=== PATIENT | male | born 1970 | race African-American/Black ===

== ENCOUNTER 2019-03-17 19:27 | Emergency (ER) | payer SELFPAY ==
[2019-03-17] MEDS ORDERED: HYDROCODONE/APAP 10/325 TAB ONE (19:44)
[2019-03-17] MEDS ORDERED: DIAZEPAM 5 MG TABLET ONE (19:45)
[2019-03-17] MEDS ORDERED: FENTANYL CITR 100 MCG/2 ML ONE (20:16)
--- NOTE | 2019-03-17 20:30 | ER ---
Nurse's Notes [facility] Name: David Hercules Age: 48 yrs Sex: Male : 1970 Arrival Date: 03/17/2019 Time: 19:29 Bed 20 Private MD: Diagnosis: Midshaft spiral right humerus fracture Presentation: 03/17 19:32 Presenting complaint: Patient states: He was playing soccer when he ran into another aj1 player. He felt his arm pop and now he has pain in his right upper arm. Transition of care: patient was not received from another setting of care. Onset of symptoms was March 17, 2019. Risk Assessment: Do you want to hurt yourself or someone else? Patient reports no desire to harm self or others. Initial Sepsis Screen: Does the patient meet any 2 criteria? HR > 90 bpm. No. Patient's initial sepsis screen is negative. Does the patient have a suspected source of infection? No. Patient's initial sepsis screen is negative. Care prior to arrival: None. 19:32 [facility] 19:32 Acuity: AILYN 4 aj1 Triage Assessment: 19:33 General: Appears in no apparent distress. uncomfortable, Behavior is calm, cooperative, aj1 appropriate for age. Pain: Complains of pain in right tricep Pain currently is 10 out of 10 on a pain scale. Neuro: Level of Consciousness is awake, alert, obeys commands, Oriented to person, place, time, situation. Cardiovascular: Patient's skin is warm and dry. Respiratory: Airway is patent Respiratory effort is even, unlabored, Respiratory pattern is regular, symmetrical. Musculoskeletal: Range of motion: limited in right elbow and right wrist. Injury Description: Patient states that he ran into another player while playing soccer. Historical: - Allergies: 19:33 No Known Allergies; aj1 - Home Meds: 19:33 None [Active]; aj1 - PMHx: 19:33 Asthma; aj1 - PSHx: 19:33 None; aj1 - Immunization history:: Flu vaccine is not up to date. - Social history:: Smoking status: Patient uses tobacco products, smokes one pack cigarettes per day. - Ebola Screening: : Patient denies travel to an Ebola-affected area in the 21 days before illness onset. Screenin:54 Abuse screen: Denies threats or abuse. Denies injuries from another. Nutritional rr5 screening: No deficits noted. Tuberculosis screening: No symptoms or risk factors identified. Fall Risk Fall in past 12 months (25 points). Total Nagy Fall Scale indicates Low Risk Score (25-44 pts). Fall prevention measures have been instituted. Side Rails Up X 2 Placed close to Nursing Station Frequent Obs/Assesments occuring Family Present and informed to notify staff if they need to leave bedside As available Patient and Family Educated on Fall Prevention Program and strategies. Assessment: 19:40 General: Appears in no apparent distress. uncomfortable, Behavior is calm, cooperative, rr5 appropriate for age. Pain: Complains of pain in right upper arm Pain does not radiate. Pain currently is 10 out of 10 on a pain scale. Quality of pain is described as aching, Pain began suddenly, Is intermittent. 19:40 Neuro: Level of Consciousness is awake, alert, obeys commands, Oriented to person, rr5 place, time, situation, Appropriate for age. Cardiovascular: Capillary refill < 3 seconds Patient's skin is warm and dry. Respiratory: Airway is patent Respiratory effort is even, unlabored, Respiratory pattern is regular, symmetrical. GI: No signs and/or symptoms were reported involving the gastrointestinal system. : No signs and/or symptoms were reported regarding the genitourinary system. EENT: No signs and/or symptoms were reported regarding the EENT system. Derm: Skin is intact, Skin temperature is warm. Musculoskeletal: Circulation, motion, and sensation intact. Capillary refill < 3 seconds, Range of motion: limited in right elbow Swelling present in right upper arm Reports pain in right upper arm. 20:11 Reassessment: Patient appears in no apparent distress at this time. complaint of right rr5 arm pain pain score 7/10. ED provider aware with ordered made and carried out. 21:04 Reassessment: Patient appears in no apparent distress at this time. Patient is alert, rr5 oriented x 3, equal unlabored respirations, skin warm/dry/pink. discharge instruction given and explained without complaints made. splint rechecked by ED provider. Patient states feeling better. Patient states symptoms have improved. Vital Signs: 19:33 BP 116 / 66; Pulse 104; Resp 20; Temp 98.4; Pulse Ox 100% on R/A; Weight 77.11 kg (R); aj1 Height 6 ft. 0 in. (182.88 cm) (R); Pain 10/10; 20:10 BP 118 / 70; Pulse 99; Resp 18; Pulse Ox 99% on R/A; Pain 7/10; rr5 21:00 BP 115 / 60; Pulse 95; Resp 17; Pulse Ox 99% on R/A; rr5 19:33 Body Mass Index 23.06 (77.11 kg, 182.88 cm) aj1 ED Course: 19:29 Patient arrived in ED. ds1 19:33 Triage completed. aj1 19:33 Arm band placed on Patient placed in an exam room. aj1 19:36 Maxi Ontiveros RN is Primary Nurse. rr5 19:36 Trisha Shi FNP-C is PHCP. snw 19:36 Thai Ribera MD is Attending Physician. snw 19:40 Ice pack to injury. rr5 19:40 Patient has correct armband on for positive identification. Bed in low position. Call rr5 light in reach. Side rails up X2. 19:50 Shoulder immobilizer applied on right shoulder. rr5 20:27 Gaudencio Han MD is Referral Physician. snw 20:36 Humerus Right XRAY In Process Unspecified. EDMS 21:00 Orthoglass splint: Coaptation splint applied on right arm. rr5 21:05 No provider procedures requiring assistance completed. Patient did not have IV access rr5 during this emergency room visit. Administered Medications: 19:50 Drug: [place] 10 mg-325 mg 1 tabs {Note: rass 0.} Route: PO; rr5 20:50 Follow up: Response: RASS: Alert and Calm (0) rr5 19:50 Drug: Valium 5 mg Route: PO; rr5 20:50 Follow up: Response: RASS: Alert and Calm (0) rr5 20:17 Drug: fentaNYL (PF) 50 mcg Route: IM; Site: left deltoid; rr5 20:18 Follow up: rass 0 on administration rr5 21:03 Follow up: Response: No adverse reaction; RASS: Alert and Calm (0) rr5 20:50 Drug: Tetanus-Diphtheria Toxoid Adult 0.5 ml {Health And Safety Representative: [employer]. Exp: rr5 10/29/2020. Lot #: [id number]. } Route: IM; Site: right gluteus; 21:03 Follow up: Response: Medication administered at discharge. rr5 Intake: Outcome: 20:28 Discharge ordered by . lizzie 21:05 Discharged to home ambulatory, with family. rr5 21:05 Condition: stable 21:05 Discharge instructions given to patient, Instructed on discharge instructions, follow up and referral plans. medication usage, Demonstrated understanding of instructions, follow-up care, medications, Prescriptions given X 2. 21:06 Patient left the ED. rr5 Signatures: Dispatcher [employer] EDJocelyne Harrison, RN RN aj1 Trisha Shi, RODEO CLOWN-C RODEO CLOWN-Csnw Estrella Kirk ds1 Maxi Ontiveros, RN RN rr5
--- NOTE | 2019-03-17 20:31 | EDPHYS ---
Physician Documentation [facility] Name: David Hercules Age: 48 yrs Sex: Male : 1970 Arrival Date: 03/17/2019 Time: 19:29 Bed 20 Private MD: ED Physician Thai Ribera HPI: 03/17 19:41 This 48 yrs old Black Male presents to ER via Ambulatory with complaints of Arm Injury. snw 19:41 The patient or guardian complains of decreased range of motion, pain, that is acute. snw The complaints affect the right bicep. Context: The problem was sustained at a sports field or court, resulted from ran into another player and felt a pop. Onset: The symptoms/episode began/occurred suddenly, just prior to arrival. Treatment prior to arrival includes: no previous treatment. Associated signs and symptoms: The patient has no apparent associated signs or symptoms. Severity of symptoms: At their worst the symptoms were moderate, severe. The patient has experienced a previous episode, 30 yrs ago. The patient has not recently seen a physician. Historical: - Allergies: 19:33 No Known Allergies; aj1 - Home Meds: 19:33 None [Active]; aj1 - PMHx: 19:33 Asthma; aj1 - PSHx: 19:33 None; aj1 - Immunization history:: Flu vaccine is not up to date. - Social history:: Smoking status: Patient uses tobacco products, smokes one pack cigarettes per day. - Ebola Screening: : Patient denies travel to an Ebola-affected area in the 21 days before illness onset. ROS: 19:39 Constitutional: Negative for fever, chills, and weight loss, Eyes: Negative for injury, snw pain, redness, and discharge, ENT: Negative for injury, pain, and discharge, Neck: Negative for injury, pain, and swelling, Cardiovascular: Negative for chest pain, palpitations, and edema, Respiratory: Negative for shortness of breath, cough, wheezing, and pleuritic chest pain, Abdomen/GI: Negative for abdominal pain, nausea, vomiting, diarrhea, and constipation, Back: Negative for injury and pain, : Negative for injury, bleeding, discharge, and swelling, Skin: Negative for injury, rash, and discoloration, Neuro: Negative for headache, weakness, numbness, tingling, and seizure. 19:39 MS/extremity: Positive for injury or acute deformity, decreased range of motion, pain, of the right humerus. Exam: 19:39 Constitutional: This is a well developed, well nourished patient who is awake, alert, snw and in no acute distress. Head/Face: Normocephalic, atraumatic. Eyes: Pupils equal round and reactive to light, extra-ocular motions intact. Lids and lashes normal. Conjunctiva and sclera are non-icteric and not injected. Cornea within normal limits. Periorbital areas with no swelling, redness, or edema. ENT: Nares patent. No nasal discharge, no septal abnormalities noted. Tympanic membranes are normal and external auditory canals are clear. Oropharynx with no redness, swelling, or masses, exudates, or evidence of obstruction, uvula midline. Mucous membranes moist. Neck: Trachea midline, no thyromegaly or masses palpated, and no cervical lymphadenopathy. Supple, full range of motion without nuchal rigidity, or vertebral point tenderness. No Meningismus. Chest/axilla: Normal chest wall appearance and motion. Nontender with no deformity. No lesions are appreciated. Cardiovascular: Regular rate and rhythm with a normal S1 and S2. No gallops, murmurs, or rubs. Normal PMI, no JVD. No pulse deficits. Respiratory: Lungs have equal breath sounds bilaterally, clear to auscultation and percussion. No rales, rhonchi or wheezes noted. No increased work of breathing, no retractions or nasal flaring. Abdomen/GI: Soft, non-tender, with normal bowel sounds. No distension or tympany. No guarding or rebound. No evidence of tenderness throughout. Back: No spinal tenderness. No costovertebral tenderness. Full range of motion. Skin: Warm, dry with normal turgor. Normal color with no rashes, no lesions, and no evidence of cellulitis. Neuro: Awake and alert, GCS 15, oriented to person, place, time, and situation. Cranial nerves II-XII grossly intact. Motor strength 5/5 in all extremities. Sensory grossly intact. Cerebellar exam normal. Normal gait. Psych: Awake, alert, with orientation to person, place and time. Behavior, mood, and affect are within normal limits. 19:39 Musculoskeletal/extremity: Extremities: grossly normal except: noted in the right bicep: decreased ROM, pain, swelling, ROM: limited active range of motion due to pain, limited passive range of motion due to pain, Circulation is intact in all extremities. Sensation intact. Joints: right shoulder held in adduction. Vital Signs: 19:33 BP 116 / 66; Pulse 104; Resp 20; Temp 98.4; Pulse Ox 100% on R/A; Weight 77.11 kg (R); aj1 Height 6 ft. 0 in. (182.88 cm) (R); Pain 10/10; 20:10 BP 118 / 70; Pulse 99; Resp 18; Pulse Ox 99% on R/A; Pain 7/10; rr5 21:00 BP 115 / 60; Pulse 95; Resp 17; Pulse Ox 99% on R/A; rr5 19:33 Body Mass Index 23.06 (77.11 kg, 182.88 cm) aj1 Procedures: 20:30 Splinting: Splint applied to right arm using Orthoglass splint, applied by nurse. snw MDM: 19:36 Patient medically screened. snw 20:16 Data reviewed: vital signs, nurses notes. Data interpreted: Pulse oximetry: on room air snw is 100 %. Interpretation: normal. Counseling: I had a detailed discussion with the patient and/or guardian regarding: the historical points, exam findings, and any diagnostic results supporting the discharge/admit diagnosis, radiology results, the need for outpatient follow up, to return to the emergency department if symptoms worsen or persist or if there are any questions or concerns that arise at home. Physician consultation: Gaudencio Han MD was called at 20:18, was contacted at 20:18, regarding consult, patient's condition, outpatient follow-up, in 2-3 days, orders for coaptation splint, pain medications, and outpatient follow up. 03/17 19:40 Order name: Humerus Right XRAY; Complete Time: 20:46 snw 03/17 19:40 Order name: Sling; Complete Time: 19:50 snw 03/17 19:40 Order name: Ice pack; Complete Time: 19:40 snw 03/17 20:25 Order name: Splint: Coaptation splint; Complete Time: 21:01 snw Administered Medications: 19:50 Drug: [place] 10 mg-325 mg 1 tabs {Note: rass 0.} Route: PO; rr5 20:50 Follow up: Response: RASS: Alert and Calm (0) rr5 19:50 Drug: Valium 5 mg Route: PO; rr5 20:50 Follow up: Response: RASS: Alert and Calm (0) rr5 20:17 Drug: fentaNYL (PF) 50 mcg Route: IM; Site: left deltoid; rr5 20:18 Follow up: rass 0 on administration rr5 21:03 Follow up: Response: No adverse reaction; RASS: Alert and Calm (0) rr5 20:50 Drug: Tetanus-Diphtheria Toxoid Adult 0.5 ml {Leather Production Worker: [employer]. Exp: rr5 10/29/2020. Lot #: [id number]. } Route: IM; Site: right gluteus; 21:03 Follow up: Response: Medication administered at discharge. rr5 Disposition: 03/18 01:09 Co-signature as Attending Physician, Thai Ribera MD. [facility] Disposition: 03/17/19 20:28 Discharged to Home. Impression: Midshaft spiral right humerus fracture. - Condition is Stable. - Discharge Instructions: Cast or Splint Care, Adult, RICE for Routine Care of Injuries, VIS, Tetanus, Diphtheria (Td) - CDC, How to Use a Sling. - Prescriptions for Mobic 7.5 mg Oral Tablet - take 1 tablet by ORAL route once daily take with food; 20 tablet. Tylenol- Codeine #3 300-30 mg Oral Tablet - take 2 tablets by ORAL route every 6 hours As needed; 20 tablet. - Medication Reconciliation Form, Thank You Letter, Antibiotic Education, Prescription Opioid Use form. - Follow up: Emergency Department; When: As needed; Reason: Worsening of condition. Follow up: Gaudencio Han MD; When: 2 - 3 days; Reason: Recheck today's complaints, Continuance of care. - Problem is new. - Symptoms are unchanged. Signatures: Dispatcher [employer] Jocelyne Gutierrez RN RN aj1 Thai Ribera MD MD pkl Trisha Shi, FOOD TESTER-C FOOD TESTER-Csnw Maxi Ontiveros RN RN rr5 Corrections: (The following items were deleted from the chart) 03/17 21:06 20:28 03/17/2019 20:28 Discharged to Home. Impression: Midshaft spiral right humerus rr5 fracture. Condition is Stable. Forms are Medication Reconciliation Form, Thank You Letter, Antibiotic Education, Prescription Opioid Use. Follow up: Emergency Department; When: As needed; Reason: Worsening of condition. Follow up: Gaudencio Han; When: 2 - 3 days; Reason: Recheck today's complaints, Continuance of care. Problem is new. Symptoms are unchanged. snw
[2019-03-17] MEDS ORDERED: TETANUS & DIPHTHERIA TOX,ADULT 0.5 ML VIAL ONE (20:41)
--- NOTE | 2019-03-17 20:42 | RAD REPORT ---
EXAM DESCRIPTION: RAD - Humerus Right - 03/17/2019 8:34 pm CLINICAL HISTORY: PAIN COMPARISON: <Comparisons> FINDINGS: Oblique fracture is seen involving the midshaft of the humerus. Mild displacement is prese nt.
== END 2019-03-17 21:06 | disposition home or self-care (01) ==
LOC: ER 19:27
PROC: 2W38X1Z Immobilization of Right Upper Extremity using Splint (ICD-10-PCS; principal; 2019-03-17)
DX: S42.341A Displaced spiral fracture of shaft of humerus, right arm, initial encounter for closed fracture (principal); W51.XXXA Accidental striking against or bumped into by another person, initial encounter; Y93.9 Activity, unspecified; Y92.39 Other specified sports and athletic area as the place of occurrence of the external cause; F17.210 Nicotine dependence, cigarettes, uncomplicated
CPT/HCPCS: 90471; 90714; 96372; 99284; J3010

== ENCOUNTER 2021-01-29 11:41 | Emergency (ER) | payer SELFPAY ==
[2021-01-29] MEDS ORDERED: DIPHENHYDRAMINE 25 MG TAB/CAP ONE (12:44)
[2021-01-29] MEDS ORDERED: FAMOTIDINE 20 MG TAB ONE (12:45)
[2021-01-29] MEDS ORDERED: predniSONE 20 MG TAB ONE (12:45)
--- NOTE | 2021-01-29 14:22 | ER ---
Nurse's Notes [facility] Name: David Hercules Age: 50 yrs Sex: Male : 1970 Arrival Date: 01/29/2021 Time: 11:45 Bed 16 Private MD: Diagnosis: Allergy, unspecified Presentation: 01/29 11:47 Chief complaint: Patient states: i dont know i got bit by something or what last night, tw2 then i woke up this morning and i seen a little redmark and i feel short of breath too. i got my twins ready and went to work and told my supervisor [employer] that i am having trouble breathing. when i looked at my RIGHT arm is is swollen and i feel like maybe some swelling is going on in my throat. Coronavirus screen: At this time, the client does not indicate any symptoms associated with coronavirus-19. Ebola Screen: Patient denies travel to an Ebola-affected area in the 21 days before illness onset. Initial Sepsis Screen: Does the patient meet any 2 criteria? No. Patient's initial sepsis screen is negative. Does the patient have a suspected source of infection? No. Patient's initial sepsis screen is negative. Risk Assessment: Do you want to hurt yourself or someone else? Patient reports no desire to harm self or others. Onset of symptoms was January 29, 2021. 11:47 Method Of Arrival: Ambulatory tw2 11:47 Acuity: AILYN 3 tw2 Triage Assessment: 11:50 General: Appears in no apparent distress. Behavior is calm, cooperative, appropriate tw2 for age. Pain: Complains of pain in right arm. 11:50 Respiratory: Reports shortness of breath at rest. tw2 Historical: - Allergies: 11:50 No Known Allergies; tw2 - Home Meds: 11:50 None [Active]; tw2 - PMHx: 11:50 Asthma; tw2 - PSHx: 11:50 None; tw2 - Immunization history:: Adult Immunizations. - Social history:: Smoking status: . Screenin:52 Abuse screen: Denies threats or abuse. Denies injuries from another. Nutritional tr6 screening: No deficits noted. Tuberculosis screening: No symptoms or risk factors identified. Fall Risk None identified. Assessment: 13:51 General: Appears in no apparent distress. comfortable, Behavior is calm, cooperative, tr6 appropriate for age. Pain: Denies pain. Neuro: No deficits noted. Cardiovascular: No deficits noted. Respiratory: No deficits noted. GI: No deficits noted. : No deficits noted. EENT: No deficits noted. Derm: Skin is intact, Skin temperature is warm Reports swelling to lower right arm since this morning. Musculoskeletal: No deficits noted. Vital Signs: 11:47 BP 126 / 89; Pulse 98; Resp 17; Temp 97.9(TE); Pulse Ox 99% on R/A; Weight 83.91 kg tw2 (R); Height 6 ft. 0 in. (182.88 cm); Pain 0/10; 13:50 BP 136 / 89; Pulse 76; Resp 18; Pulse Ox 100% on R/A; tr6 11:47 Body Mass Index 25.09 (83.91 kg, 182.88 cm) tw2 ED Course: 11:45 Patient arrived in ED. mr 11:50 Triage completed. tw2 11:51 Arm band placed on. tw2 11:56 Yeimi Singer RN is Primary Nurse. tr6 12:02 Herb Cast PA is PHCP. cp 12:02 Sina Villalobos MD is Attending Physician. cp 13:52 No apparent distress. Resting quietly. tr6 13:52 Patient has correct armband on for positive identification. Bed in low position. Call tr6 light in reach. Side rails up X 1. Pulse ox on. NIBP on. Door closed. Noise minimized. Visitors limited. Lights dimmed. Moved to private room. 13:52 No provider procedures requiring assistance completed. Patient did not have IV access tr6 during this emergency room visit. Administered Medications: 12:28 Drug: Pepcid (famotidine) 20 mg Route: PO; tr6 14:42 Follow up: Response: No adverse reaction tr6 12:28 Drug: Benadryl (diphenhydrAMINE) 50 mg Route: PO; tr6 14:42 Follow up: Response: No adverse reaction tr6 12:28 Drug: predniSONE 80 mg Route: PO; tr6 14:42 Follow up: Response: No adverse reaction tr6 Outcome: 14:22 Discharge ordered by . cp 14:43 Discharged to home ambulatory. tr6 14:43 Condition: stable 14:43 Discharge instructions given to patient, Instructed on discharge instructions, follow up and referral plans. no drinking with medication, medication usage, safety practices, Demonstrated understanding of instructions, follow-up care, medications, Prescriptions given X 2. 14:44 Patient left the ED. tr6 Signatures: Tiffani Early Corey, PA PA cp Wise, Tara RN RN tw2 Yeimi Singer RN RN tr6
--- NOTE | 2021-01-29 14:22 | EDPHYS ---
Physician Documentation [facility] Name: David Hercules Age: 50 yrs Sex: Male : 1970 Arrival Date: 01/29/2021 Time: 11:45 Bed 16 Private MD: ED Physician Sina Villalobos HPI: 01/29 12:20 This 50 yrs old Black Male presents to ER via Ambulatory with complaints of Arm Problem.cp 12:20 The patient or guardian complains of a bite, by an insect. The complaints affect the cp palmar aspect of right forearm. Context: believes mosquito bite from previous night. Treatment prior to arrival includes: no previous treatment. Associated signs and symptoms: Pertinent positives: fever, swelling, warmth, shortness of breath, throat feels "itchy". Severity of symptoms: in the emergency department the symptoms are unchanged. Historical: - Allergies: 11:50 No Known Allergies; tw2 - Home Meds: 11:50 None [Active]; tw2 - PMHx: 11:50 Asthma; tw2 - PSHx: 11:50 None; tw2 - Immunization history:: Adult Immunizations. - Social history:: Smoking status: . ROS: 12:25 Constitutional: Negative for body aches, chills, fever, poor PO intake. cp 12:25 Eyes: Negative for injury, pain, redness, and discharge. cp 12:25 ENT: Negative for ear pain, sore throat, difficulty swallowing, difficulty handling secretions. 12:25 Cardiovascular: Negative for chest pain, edema, palpitations. 12:25 Respiratory: Positive for shortness of breath, Negative for cough, wheezing. 12:25 Abdomen/GI: Negative for abdominal pain, nausea, vomiting, and diarrhea. 12:25 Skin: Positive for swelling, of the palmar aspect of right forearm. 12:25 Neuro: Negative for altered mental status, headache, weakness. 12:25 All other systems are negative. Exam: 12:30 Constitutional: The patient appears in no acute distress, alert, awake, cp non-diaphoretic, non-toxic, well developed, well nourished. 12:30 Head/Face: Normocephalic, atraumatic. cp 12:30 Eyes: Periorbital structures: appear normal, Conjunctiva: normal, no exudate, no injection, Lids and lashes: appear normal, bilaterally. 12:30 ENT: External ear(s): are unremarkable, Nose: is normal, Mouth: Lips: moist, Oral mucosa: moist, Posterior pharynx: Airway: no evidence of obstruction, patent, swelling, is not appreciated, erythema, is not appreciated, Voice: is normal. 12:30 Chest/axilla: Inspection: normal. 12:30 Cardiovascular: Rate: normal, Rhythm: regular, Edema: is not appreciated. 12:30 Respiratory: the patient does not display signs of respiratory distress, Respirations: normal, no use of accessory muscles, no retractions, labored breathing, is not present, Breath sounds: are clear throughout, no decreased breath sounds, no stridor, no wheezing. 12:30 Abdomen/GI: Exam negative for discomfort, distension, guarding, Inspection: abdomen appears normal. 12:30 Skin: mild swelling noted right forearm with skim warmth, minimal erythema noted. 12:30 Neuro: Orientation: to person, place \\T\\ time. Mentation: is normal. Vital Signs: 11:47 BP 126 / 89; Pulse 98; Resp 17; Temp 97.9(TE); Pulse Ox 99% on R/A; Weight 83.91 kg tw2 (R); Height 6 ft. 0 in. (182.88 cm); Pain 0/10; 13:50 BP 136 / 89; Pulse 76; Resp 18; Pulse Ox 100% on R/A; tr6 11:47 Body Mass Index 25.09 (83.91 kg, 182.88 cm) tw2 MDM: 12:04 Patient medically screened. cp 12:30 Differential diagnosis: cellulitis, abscess, localized allergic reaction, anaphylaxis. cp 14:20 Data reviewed: vital signs, nurses notes. cp 14:20 Counseling: I had a detailed discussion with the patient and/or guardian regarding: the cp historical points, exam findings, and any diagnostic results supporting the discharge/admit diagnosis, to return to the emergency department if symptoms worsen or persist or if there are any questions or concerns that arise at home. Response to treatment: the patient's symptoms have markedly improved after treatment. ED course: VSS. Patient reports symptoms markedly improved and requests discharge. Patient with no signs of respiratory distress, oxygen sats 100% on RA. Administered Medications: 12:28 Drug: Pepcid (famotidine) 20 mg Route: PO; tr6 14:42 Follow up: Response: No adverse reaction tr6 12:28 Drug: Benadryl (diphenhydrAMINE) 50 mg Route: PO; tr6 14:42 Follow up: Response: No adverse reaction tr6 12:28 Drug: predniSONE 80 mg Route: PO; tr6 14:42 Follow up: Response: No adverse reaction tr6 Disposition: 01/29/21 14:22 Discharged to Home. Impression: Allergy, unspecified. - Condition is Stable. - Discharge Instructions: Allergies, Adult. - Prescriptions for Prednisone 20 mg Oral Tablet - take 2 tablet by ORAL route once daily for 5 days; 10 tablet. Pepcid 20 mg Oral Tablet - take 1 tablet by ORAL route once daily for 10 days; 10 tablet. - Medication Reconciliation Form, Thank You Letter, Antibiotic Education, Prescription Opioid Use form. - Follow up: Private Physician; When: 1 - 2 days; Reason: Worsening of condition. - Problem is new. - Symptoms have improved. Addendum: 02/03/2021 07:03 Co-signature as Attending Physician, Sina Villalobos MD. r n Signatures: Sina Villalobos MD MD rn Herb Cast PA PA cp Devi Clarke RN RN tw2 Yeimi Singer RN RN tr6 Corrections: (The following items were deleted from the chart) 01/29 14:44 14:22 01/29/2021 14:22 Discharged to Home. Impression: Allergy, unspecified. Condition tr6 is Stable. Forms are Medication Reconciliation Form, Thank You Letter, Antibiotic Education, Prescription Opioid Use. Follow up: Private Physician; When: 1 - 2 days; Reason: Worsening of condition. Problem is new. Symptoms have improved. cp
[2021-01-29 14:49] VITALS: TEMP 97.9
[2021-01-29 14:51] VITALS: BP 136/89; O2SAT 100
== END 2021-01-29 14:44 | disposition home or self-care (01) ==
LOC: ER 11:41
DX: S50.861A Insect bite (nonvenomous) of right forearm, initial encounter (principal); Z91.038 Other insect allergy status
CPT/HCPCS: 99283; J7512

== ENCOUNTER 2021-06-03 08:37 | Emergency (ER) | payer SELFPAY ==
[2021-06-03 09:44] LABS: Absolute Lymphocytes (CBC) 0.9 K/uL (0.7-4.9); Basophils % 0.2 % (0-1.3); Hematocrit 41.3 % (39.6-49.0); Lymphocytes % 22.2 % (15.3-44.8); MPV 8.3 fL (7.6-11.3)
[2021-06-03 10:32] LABS: Potassium 4.2 mmol/L (3.5-5.1)
--- NOTE | 2021-06-03 11:40 | RAD REPORT ---
EXAM DESCRIPTION: CT - Pelvis W/Cont - 06/03/2021 10:59 am CLINICAL HISTORY: Pelvic pain COMPARISON: None. TECHNIQUE: Computed axial tomography of the pelvis was obtained. Coronal and sagittal reconstruction performed. 50 cc Isovue [address] scans are performed using dose optimization technique as appropriate and may include automated exposure control or mA/KV adjustment according to patient size. FINDINGS: Minimal stranding within the the subcutaneous fat of the left buttock. No abscess seen within the perineum or perianal region. No gross abnormality of the rectum/anus seen. No ascites. IMPRESSION: Negative for an abscess
--- NOTE | 2021-06-03 12:40 | ER ---
Nurse's Notes [facility] Name: David Hercules Age: 50 yrs Sex: Male : 1970 Arrival Date: 06/03/2021 Time: 08:38 Bed 9 Private MD: Diagnosis: Unspecified hemorrhoids Presentation: 06/03 08:43 Chief complaint: Patient states: " I have been having pain when I go to the restroom. I tw5 checked it out and it looked like a cyst was there. I have never had anything like that before" Patient denies blood in stool. Coronavirus screen: Vaccine status: Patient reports being unvaccinated. Ebola Screen: Patient negative for fever greater than or equal to 101.5 degrees Fahrenheit, and additional compatible Ebola Virus Disease symptoms Patient denies exposure to infectious person. Patient denies travel to an Ebola-affected area in the 21 days before illness onset. Initial Sepsis Screen: Does the patient meet any 2 criteria? No. Patient's initial sepsis screen is negative. Does the patient have a suspected source of infection? No. Patient's initial sepsis screen is negative. Risk Assessment: Do you want to hurt yourself or someone else? Patient reports no desire to harm self or others. Onset of symptoms was June 01, 2021. 08:43 Method Of Arrival: Ambulatory tw5 08:43 Acuity: AILYN 4 tw5 10:24 Note Patient sitting up in bed, pleasant and cooperative, shows no signs of acute sl2 distress or discomfort, denies pain. Awaiting diagnostic results, will continue to monitor and re-assess. Triage Assessment: 08:45 General: Appears in no apparent distress. Behavior is calm, cooperative. Pain: Pain tw5 currently is 7 out of 10 on a pain scale. Historical: - Allergies: 08:45 No Known Allergies; tw5 - Home Meds: 08:45 None [Active]; tw5 - PMHx: 08:45 Asthma; tw5 - PSHx: 08:45 None; tw5 - Immunization history:: Client reports having NOT received the Covid vaccine. - Social history:: Smoking status: Patient reports the use of cigarette tobacco products, cigars, once a day. - Family history:: not pertinent. - Hospitalizations: : No recent hospitalization is reported. Screenin:47 Abuse screen: Denies threats or abuse. Nutritional screening: No deficits noted. sl2 Tuberculosis screening: No symptoms or risk factors identified. Fall Risk None identified. Assessment: 08:47 General: Appears in no apparent distress. comfortable, well groomed, Behavior is calm, sl2 cooperative. 08:47 Pain: Denies pain. Neuro: No deficits noted. Cardiovascular: No deficits noted. sl2 Respiratory: No deficits noted. GI: Abdomen is flat, Last BM was June 03, 2021. Bowel sounds present X 4 quads. Abd is soft and non tender X 4 quads. Reports Rectal pain with bowel movement Patient currently denies abdominal pain, bloody stool, constipation, cramping, diarrhea, epigastric pain, flatulence, gaseousness, nausea, rectal bleeding, vomiting. : No deficits noted. EENT: No deficits noted. Derm: No deficits noted. Musculoskeletal: No deficits noted. 08:50 Reassessment: EDP at bedside for patient interview and assessment. sl2 08:50 Reassessment: Patient AAO X 3, presents with c/o rectal pain with bowel movement- onset sl2 2 days ago - denies rectal bleeding or abdominal pain or fever. Patient states he feels like there is a cyst located near his rectum - states it leaked a little bit of pus - denies h/o hemorrhoids. 08:59 Reassessment: Rectal examination completed - patient tolerated well. General: Appears. sl2 10:00 Pain: Denies pain. sl2 10:44 Reassessment: Patient transported to radiology dept for CAT scan. sl2 10:56 Reassessment: CAT scan completed, patient has been returned to the unit. sl2 11:51 Reassessment: EDP present at bedside for patient reassessment, update on diagnostic 2 findings and dispositon. Vital Signs: 08:43 BP 104 / 72; Pulse 78; Resp 14; Temp 98.4(O); Pulse Ox 98% on R/A; Weight 86.18 kg; tw5 Height 6 ft. (182.88 cm); Pain 7/10; 08:47 BP 117 / 63; Pulse 78; Resp 18; Temp 98.2(O); Pulse Ox 99% on R/A; sl2 09:47 BP 125 / 89; Pulse 68; Resp 18; Temp 98.2(O); Pulse Ox 99% on R/A; sl2 10:23 BP 124 / 76; Pulse 78; Resp 18; Temp 98.2(O); Pulse Ox 100% on R/A; sl2 11:20 BP 122 / 74; Pulse 72; Resp 16; Temp 98.2(O); Pulse Ox 100% on R/A; sl2 08:43 Body Mass Index 25.77 (86.18 kg, 182.88 cm) tw5 ED Course: 08:38 Patient arrived in ED. am2 08:45 Triage completed. tw5 08:45 Arm band placed on right wrist. tw5 08:46 Sina Villalobos MD is Attending Physician. rn 08:47 Patient has correct armband on for positive identification. Placed in gown. Bed in low sl2 position. Call light in reach. 08:49 Nasra Kaur, RN is Primary Nurse. sl2 09:00 Served as a bell captain during rectal exam. sl2 09:27 Inserted saline lock: 20 gauge in left antecubital area, using aseptic technique. Blood sl2 collected. 10:00 Door closed. Noise minimized. Warm blanket given. sl2 10:43 Patient moved to SD via wheelchair. sl2 11:49 Dani Ewing MD is Referral Physician. rn 12:01 IV discontinued. sl2 Administered Medications: No medications were administered Outcome: 11:49 Discharge ordered by . rn 11:56 Discharged to home ambulatory. sl2 11:56 Condition: stable 11:56 Discharge instructions given to patient, Instructed on discharge instructions, follow up and referral plans. medication usage, Demonstrated understanding of instructions, Prescriptions given X 1. 12:19 Patient left the ED. sl2 Signatures: Sina Villalobos MD MD rn Moreno, Amanda am2 Yeimi Owusu tw5 Nasra Kaur, RN RN 2
--- NOTE | 2021-06-03 12:40 | EDPHYS ---
Physician Documentation [facility] Name: David Hercules Age: 50 yrs Sex: Male : 1970 Arrival Date: 06/03/2021 Time: 08:38 Bed 9 Private MD: ED Physician Sina Villalobos HPI: 06/03 08:54 This 50 yrs old Black Male presents to ER via Ambulatory with complaints of Rectal pain.rn 08:54 The patient presents to the emergency department with pain in the rectal area. The rn patient presents to the emergency department with pain in the rectal area, that is moderate. Onset: The symptoms/episode began/occurred 4 day(s) ago. Context: the patient has no known special context relating to the rectal area complaint(s). Modifying factors: The symptoms are alleviated by nothing, The symptoms are aggravated by bowel movement, sitting position. Associate signs and symptoms: Pertinent negatives: abdominal pain, fever, lower GI bleeding. The patient has not experienced similar symptoms in the past. The patient has not recently seen a physician. Patient reports rectal pain for 4 days, slow onset, no fever, no trauma, no bleeding. Reports took a mirror and looked and thought he saw some swelling by the anus with some pus. Has been soaking with some improvement but has not resolved the problem. No previous perirectal abscess or history of hemorrhoids. No fever or abdominal pain. Historical: - Allergies: 08:45 No Known Allergies; tw5 - Home Meds: 08:45 None [Active]; tw5 - PMHx: 08:45 Asthma; tw5 - PSHx: 08:45 None; tw5 - Immunization history:: Client reports having NOT received the Covid vaccine. - Social history:: Smoking status: Patient reports the use of cigarette tobacco products, cigars, once a day. - Family history:: not pertinent. - Hospitalizations: : No recent hospitalization is reported. ROS: 08:54 Constitutional: Negative for fever, chills, and weight loss, Eyes: Negative for injury, rn pain, redness, and discharge, Neck: Negative for injury, pain, and swelling, Cardiovascular: Negative for chest pain, palpitations, and edema, Respiratory: Negative for shortness of breath, cough, wheezing, and pleuritic chest pain, Abdomen/GI: Negative for abdominal pain, nausea, vomiting, positive for rectal pain Back: Negative for injury and pain, : Negative for injury, bleeding, discharge, and swelling, MS/Extremity: Negative for injury and deformity, Skin: Negative for injury, rash, and discoloration, Neuro: Negative for headache, weakness, numbness, tingling, and seizure. 08:54 All other systems are negative. Exam: 08:54 Constitutional: This is a well developed, well nourished patient who is awake, alert, rn and in no acute distress. Head/Face: Normocephalic, atraumatic. Eyes: Periorbital areas with no swelling, redness, or edema. Cardiovascular: Regular rate and rhythm. No pulse deficits. Respiratory: No increased work of breathing, no retractions or nasal flaring. Abdomen/GI: Soft, non-tender, nondistended. No gross evidence of perirectal abscess on external examination or palpation of the anus. 2 small areas that are more consistent with external hemorrhoids but are nontender and nonbleeding. Skin: Warm, dry MS/ Extremity: Pulses equal, no cyanosis. Neuro: Awake and alert, GCS 15 Vital Signs: 08:43 BP 104 / 72; Pulse 78; Resp 14; Temp 98.4(O); Pulse Ox 98% on R/A; Weight 86.18 kg; tw5 Height 6 ft. (182.88 cm); Pain 7/10; 08:47 BP 117 / 63; Pulse 78; Resp 18; Temp 98.2(O); Pulse Ox 99% on R/A; sl2 09:47 BP 125 / 89; Pulse 68; Resp 18; Temp 98.2(O); Pulse Ox 99% on R/A; sl2 10:23 BP 124 / 76; Pulse 78; Resp 18; Temp 98.2(O); Pulse Ox 100% on R/A; sl2 11:20 BP 122 / 74; Pulse 72; Resp 16; Temp 98.2(O); Pulse Ox 100% on R/A; sl2 08:43 Body Mass Index 25.77 (86.18 kg, 182.88 cm) tw5 MDM: 08:47 Patient medically screened. rn 11:47 Differential diagnosis: hemorrhoids, fissure, abscess. Data reviewed: vital signs, rn nurses notes, lab test result(s), radiologic studies, CT scan, and as a result, I will discharge patient. Counseling: I had a detailed discussion with the patient and/or guardian regarding: the historical points, exam findings, and any diagnostic results supporting the discharge/admit diagnosis, lab results, radiology results, the need for outpatient follow up, to return to the emergency department if symptoms worsen or persist or if there are any questions or concerns that arise at home. Response to treatment: the patient's symptoms have mildly improved after treatment, and as a result, I will discharge patient. Special discussion: I discussed with the patient/guardian in detail that at this point there is no indication for admission to the hospital. It is understood, however, that if the symptoms persist or worsen the patient needs to return immediately for re-evaluation. Based on the history and exam findings, there is no indication for further emergent testing or inpatient evaluation. I discussed with the patient/guardian the need to see the lockstitch machine operator for further evaluation of the symptoms. ED course: CT pelvis negative for perirectal abscess or mass. No other acute findings. Normal white blood cell count. Afebrile. Exam and story more consistent with internal hemorrhoid. Will DC home with suppository and GI follow-up. 06/03 09:03 Order name: IV Saline Lock; Complete Time: : rn 06/03 09:03 Order name: Labs collected and sent; Complete Time: : rn Administered Medications: No medications were administered Disposition Summary: 06/03/21 11:49 Discharge Ordered Location: Home rn Problem: new rn Symptoms: have improved rn Condition: Stable rn Diagnosis - Unspecified hemorrhoids rn Followup: rn - With: Dani Ewing MD - When: As needed - Reason: Recheck today's complaints, Re-evaluation by your physician Discharge Instructions: - Discharge Summary Sheet rn - High-Fiber Diet rn - Hemorrhoids rn Forms: - Medication Reconciliation Form rn - Thank You Letter rn - Antibiotic learning disabled teacher - Prescription Opioid Use rn Prescriptions: - Anusol-HC 25 mg Rectal Suppository - insert 1 suppository by RECTAL route every 12 hours As needed; 20 suppository; rn Refills: 0, Product Selection Permitted Signatures: Sina Villalobos MD MD rn Yeimi Owusu tw5 Corrections: (The following items were deleted from the chart) 09:04 08:54 Constitutional: This is a well developed, well nourished patient who is awake, rn alert, and in no acute distress. Head/Face: Normocephalic, atraumatic. Eyes: Periorbital areas with no swelling, redness, or edema. Cardiovascular: Regular rate and rhythm. No pulse deficits. Respiratory: No increased work of breathing, no retractions or nasal flaring. Abdomen/GI: Soft, non-tender, nondistended Skin: Warm, dry MS/ Extremity: Pulses equal, no cyanosis. Neuro: Awake and alert, GCS 15 rn
[2021-06-03 15:03] VITALS: TEMP 98.2
[2021-06-03 15:06] VITALS: O2SAT 100
[2021-06-03 15:07] VITALS: BP 122/74
== END 2021-06-03 12:19 | disposition home or self-care (01) ==
LOC: ER 08:37
DX: K64.9 Unspecified hemorrhoids (principal); F17.290 Nicotine dependence, other tobacco product, uncomplicated
CPT/HCPCS: 36415; 72193; 80048; 85025; 99284

== ENCOUNTER 2023-12-08 11:35 | Emergency (ER) | payer OTHER ==
[2023-12-08] MEDS ORDERED: AMOXICILLIN TRIHYDR 250 MG CAP ONE (11:53)
[2023-12-08] MEDS ORDERED: IBUPROFEN 400 MG TAB ONE (11:53)
--- NOTE | 2023-12-08 11:57 | EDPHYS ---
Physician Documentation [facility] Name: David Hercules Age: 53 yrs Sex: Male : 1970 Arrival Date: 12/08/2023 Time: 11:35 Bed 16 Private MD: ED Physician Dave Cortes HPI: 12/07 11:54 This 53 yrs old Black Male presents to ER via Ambulatory with complaints of Cyst - Both sp3 armpits. 11:54 53-year-old male with a history of bilateral recurrent axilla abscesses (no known or sp3 documented history of hidradenitis) presents to the ED with left-sided axilla swelling and abscess for the last 3 days. Patient had 1 on the right which self resolved. Patient has not been on any antibiotics. He denies any injury. He denies fever, chest pain, back pain, shortness of breath, rash, or any other concerning symptoms on ROS at this time.. Historical: - Allergies: 11:51 No Known Allergies; nj1 - PMHx: 11:51 Asthma; nj1 - Immunization history:: Client reports having NOT received the Covid vaccine. - Infectious Disease History:: Denies. - Social history:: Smoking status: Patient reports the use of cigarette tobacco products, cigars. ROS: 11:55 Constitutional: Negative for fever, chills, and weight loss, Eyes: Negative for injury, sp3 pain, redness, and discharge, ENT: Negative for injury, pain, and discharge, Neck: Negative for injury, pain, and swelling, Cardiovascular: Negative for chest pain, palpitations, and edema, Respiratory: Negative for shortness of breath, cough, wheezing, and pleuritic chest pain, Abdomen/GI: Negative for abdominal pain, nausea, vomiting, diarrhea, and constipation, Back: Negative for injury and pain, Neuro: Negative for headache, weakness, numbness, tingling, and seizure, Psych: Negative for depression, anxiety, suicide ideation, homicidal ideation, and hallucinations, Allergy/Immunology: Negative for hives, rash, and allergies, Endocrine: Negative for neck swelling, polydipsia, polyuria, polyphagia, and marked weight changes, 11:55 All other systems are negative, Exam: 11:55 Constitutional: This is a well developed, well nourished patient who is awake, alert, sp3 and in no acute distress. Head/Face: Normocephalic, atraumatic. Eyes: Pupils equal round and reactive to light, extra-ocular motions intact. Lids and lashes normal. Conjunctiva and sclera are non-icteric and not injected. Cornea within normal limits. Periorbital areas with no swelling, redness, or edema. ENT: Nares patent. No nasal discharge, no septal abnormalities noted. External auditory canals are clear. Oropharynx with no redness, swelling, or masses, exudates, or evidence of obstruction, uvula midline. Mucous membranes moist. Neck: Trachea midline, no thyromegaly or masses palpated, and no cervical lymphadenopathy. Supple, full range of motion without nuchal rigidity, or vertebral point tenderness. No Meningismus. Cardiovascular: Regular rate and rhythm with a normal S1 and S2. No gallops, murmurs, or rubs. Normal PMI, no JVD. No pulse deficits. Respiratory: Lungs have equal breath sounds bilaterally, clear to auscultation and percussion. No rales, rhonchi or wheezes noted. No increased work of breathing, no retractions or nasal flaring. Abdomen/GI: Soft, non-tender, with normal bowel sounds. No distension or tympany. No guarding or rebound. No evidence of tenderness throughout. Back: No spinal tenderness. No costovertebral tenderness. Full range of motion. MS/ Extremity: Pulses equal, no cyanosis. Neurovascular intact. Full, normal range of motion. Neuro: Awake and alert, GCS 15, oriented to person, place, time, and situation. Cranial nerves II-XII grossly intact. Motor strength 5/5 in all extremities. Sensory grossly intact. Cerebellar exam normal. Normal gait. Psych: Awake, alert, with orientation to person, place and time. Behavior, mood, and affect are within normal limits. 11:55 Chest/axilla: To centimeter by 1 cm area of swelling in the left axilla without fluctuance. No drainage or open wound noted.. Vital Signs: 11:42 BP 134 / 76; Pulse 86; Resp 18; Temp 98.2(O); Pulse Ox 100% on R/A; Weight 95.25 kg; nj1 Height 6 ft. 0 in. ; Pain 9/10; 11:42 Body Mass Index 28.48 (95.25 kg, 182.88 cm) nj1 11:42 Pain Scale: Adult nj1 MDM: 11:43 Patient medically screened. sp3 11:55 Data reviewed: vital signs, nurses notes. ED course: 53-year-old male with left axilla sp3 abscess not ready for I\T\D. I recommended warm compresses and p.o. antibiotics. Patient may also have hidradenitis as these are recurrent. Recommend follow-up to PCP and/or general surgery. Patient told to return if symptoms get worse or the area becomes fluctuant.. Administered Medications: 11:55 Drug: Amoxicillin-Clavulanate PO 500 mg PO once Route: PO; bp 12:02 Follow up: Response: No adverse reaction bp 11:55 Drug: Ibuprofen PO 800 mg PO once Route: PO; bp 12:02 Follow up: Response: No adverse reaction bp Disposition Summary: 12/08/23 11:57 Discharge Ordered Notes: Location: Home sp3 Condition: Stable sp3 Diagnosis - Abscess, possible hidradenitis sp3 Followup: sp3 - With: Private Physician - When: Upon discharge from the Emergency Department - Reason: Continuance of care Followup: sp3 - With: Rufus Conway MD - When: Upon discharge from the Emergency Department - Reason: Recheck today's complaints Discharge Instructions: - Discharge Summary Sheet sp3 - Skin Abscess sp3 - Hidradenitis Suppurativa sp3 Forms: - Work release form bp - Medication Reconciliation Form sp3 - Antibiotic Education sp3 - Prescription Opioid Use sp3 - Patient Portal Instructions sp3 - Leadership Thank You Letter sp3 Prescriptions: - Augmentin 875-125 mg Oral Tablet - take 1 tablet ORAL route every 12 hours for 10 days; 20 tablet; Refills: 0, sp3 Product Selection Permitted Signatures: Ventura Irwin RN RN bp Dave Cortes MD MD sp3 Divina Casillas RN RN nj1
--- NOTE | 2023-12-08 11:57 | ER ---
Nurse's Notes [facility] Name: David Hercules Age: 53 yrs Sex: Male : 1970 Arrival Date: 12/08/2023 Time: 11:35 Bed 16 Private MD: Diagnosis: Abscess, possible hidradenitis Presentation: 12/07 11:42 Chief complaint: Patient states: Bumps to both armpits, bigger on left arm than right. nj1 States right arm bump has been draining. 11:42 Coronavirus screen: Vaccine status: Patient reports being unvaccinated. Ebola Screen: nj1 Patient denies travel to an Ebola-affected area in the 21 days before illness onset. Initial Sepsis Screen: Does the patient meet any 2 criteria? No. Patient's initial sepsis screen is negative. Does the patient have a suspected source of infection? No. Patient's initial sepsis screen is negative. Risk Assessment: Do you want to hurt yourself or someone else? Patient reports no desire to harm self or others. Onset of symptoms was November 2023. 11:42 Method Of Arrival: Ambulatory [facility] 11:42 Acuity: AILYN 3 [facility] Triage Assessment: 11:50 General: Appears in no apparent distress. uncomfortable, Behavior is calm, cooperative, bp appropriate for age. Pain: Complains of pain in right axilla and left axilla. EENT: No deficits noted. Derm: Abscess located on right axilla and left axilla. Historical: - Allergies: 11:51 No Known Allergies; nj1 - PMHx: 11:51 Asthma; nj1 - Immunization history:: Client reports having NOT received the Covid vaccine. - Infectious Disease History:: Denies. - Social history:: Smoking status: Patient reports the use of cigarette tobacco products, cigars. Screenin:01 [facility] ED Fall Risk Assessment (Adult) History of falling in the last 3 months, bp including since admission No falls in past 3 months (0 pts). Abuse screen: Denies threats or abuse. Denies injuries from another. Nutritional screening: No deficits noted. Tuberculosis screening: No symptoms or risk factors identified. Assessment: 11:50 General: Appears in no apparent distress. uncomfortable, Behavior is calm, cooperative, bp appropriate for age. Pain: Complains of pain in right axilla and left axilla. Derm: Abscess located on right axilla and left axilla. Vital Signs: 11:42 BP 134 / 76; Pulse 86; Resp 18; Temp 98.2(O); Pulse Ox 100% on R/A; Weight 95.25 kg; nj1 Height 6 ft. 0 in. ; Pain 9/10; 11:42 Body Mass Index 28.48 (95.25 kg, 182.88 cm) nj1 11:42 Pain Scale: Adult [facility] ED Course: 11:37 Patient arrived in ED. im 11:41 Milagros Ariza MD is Attending Physician. sd2 11:41 Attending Physician role handed off by Milagros Ariza MD sp3 11:41 Dave Cortes MD is Attending Physician. sp3 11:43 Ventura Irwin RN is Primary Nurse. bp 11:51 Triage completed. nj1 11:51 Arm band placed on. nj1 11:56 Rufus Conway MD is Referral Physician. sp3 12:01 Patient has correct armband on for positive identification. Provided Education on: N/A. bp 12:01 No provider procedures requiring assistance completed. Patient did not have IV access bp during this emergency room visit. Administered Medications: 11:55 Drug: Amoxicillin-Clavulanate PO 500 mg PO once Route: PO; bp 12:02 Follow up: Response: No adverse reaction bp 11:55 Drug: Ibuprofen PO 800 mg PO once Route: PO; bp 12:02 Follow up: Response: No adverse reaction bp Medication: 12:02 VIS not applicable for this client. bp Outcome: 11:57 Discharge ordered by . sp3 12:02 Discharged to home ambulatory, bp 12:02 Condition: stable 12:02 Discharge instructions given to patient, Instructed on discharge instructions, follow up and referral plans. medication usage, wound care, Demonstrated understanding of instructions, follow-up care, medications, wound care, Prescriptions given X 1, 12:18 Patient left the ED. ko1 Signatures: Ventura Irwin, RN RN bp Dave Cortes MD MD sp3 Milagros Ariza MD MD sd2 Ambreen Hemphill RN RN ko1 Divina Casillas RN RN nj1 Jinny Strickland im
[2023-12-08 12:51] VITALS: BP 134/76; TEMP 98.2; O2SAT 100
== END 2023-12-08 12:18 | disposition home or self-care (01) ==
LOC: ER 11:35
DX: L02.412 Cutaneous abscess of left axilla (principal); L02.411 Cutaneous abscess of right axilla; Z72.0 Tobacco use
CPT/HCPCS: 99283